=== PATIENT | male | born 1965 | race Two or more races ===

== ENCOUNTER 2017-04-12 23:40 | Inpatient (IN) | payer MEDICAID, OTHER ==
[~2017-04-12] VITALS: Ht 157.5 cm; Wt 101.6 kg
[2017-04-12 23:50] VITALS: BP 129/85
[2017-04-13] VITALS (8 sets, daily range): BP systolic 106–132; BP diastolic 61–80
[2017-04-13 01:18] LABS: BASOPHILS % (AUTO) 0.9 % (0.0-2.0); EOSINOPHILS % (AUTO) 2.2 % (0.0-3.0); LYMPHOCYTES % (AUTO) 21.2 % (20.0-45.0); MEAN CORPUSCULAR HGB CONC 34.2 G/DL (32.0-36.0); MEAN CORPUSCULAR VOLUME 94 FL (80-99); MEAN PLATELET VOLUME 8.4 FL (6.5-10.1); MONOCYTES % (AUTO) 11.1 % (1.0-10.0); NEUTROPHILS % (AUTO) 64.5 % (45.0-75.0); PLATELET COUNT 156 K/UL (150-450); RED BLOOD COUNT 4.86 M/UL (4.70-6.10); RED CELL DISTRIBUTION WIDTH 12.2 % (11.6-14.8); WHITE BLOOD COUNT 7.6 K/UL (4.8-10.8)
[2017-04-13 01:40] LABS: ALANINE AMINOTRANSFERASE 85 U/L (12-78); ALBUMIN/GLOBULIN RATIO 0.9 (1.0-2.7); ANION GAP 6 (5-15); ASPARTATE AMINO TRANSFERASE 72 U/L (15-37); CARBON DIOXIDE 26 MMOL/L (21-32); CHLORIDE 106 MMOL/L (98-107); CREATININE 0.8 MG/DL (0.55-1.30); GLOMERULAR FILTRATION RATE > 60 mL/min (>60); LIPASE 209 U/L (73-393); POTASSIUM 3.4 MMOL/L (3.5-5.1); SODIUM 138 MMOL/L (136-145); TOTAL PROTEIN 7.9 G/DL (6.4-8.2)
[2017-04-13] MEDS ORDERED: Enoxaparin 100mg Inj SUBQ SCH (03:30)
--- NOTE | 2017-04-13 05:08 | Emergency Room Report ---
History of Present Illness General Chief Complaint: Chest Pain Source: Patient Present Illness HPI Patient presents with complaints of chest pain or shortness of breath patient reports that he was at rest when the sensation came on he had some discomfort to his left arm Denies any headache or visual changes denies any vomiting or diarrhea Pain was a 5/10 heaviness midsternal Patient denies any history of smoking or drug abuse Patient is not on any medications Pain has now started to improve and resolve He complained of a dizziness sensation and a ringing in his ears at the time as well Allergies: Coded Allergies: No Known Allergies (Unverified , 04/12/17) Patient History Past Medical History: see triage record Pertinent Family History: none Reviewed Nursing Documentation: PMH: Agreed, PSxH: Agreed Review of Systems All Other Systems: negative except mentioned in HPI Physical Exam Vital Signs Date Time Temp Pulse Resp B/P (MAP) Pulse Ox O2 Delivery O2 Flow Rate FiO2 04/12/17 23:43 97.7 99 18 129/85 98 Room Air Sp02 EP Interpretation: reviewed, normal General Appearance: well appearing, no apparent distress Head: normocephalic, atraumatic Eyes: bilateral eye PERRL, bilateral eye EOMI ENT: hearing grossly normal, normal pharynx, TMs + canals normal, uvula midline Neck: full range of motion, supple, no meningismus, no bony tend Respiratory: lungs clear, normal breath sounds, no rhonchi, no respiratory distress, no retraction, no accessory muscle use Cardiovascular #1: normal peripheral pulses, regular rate, rhythm, no edema, no gallop, no JVD, no murmur Gastrointestinal: normal bowel sounds, non tender, soft, no mass, no organomegaly, non-distended, no guarding, no hernia, no pulsatile mass, no rebound Genitourinary: no CVA tenderness Musculoskeletal: normal inspection Neurologic: oriented x3, responsive, 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, motor strength/ tone normal, sensory intact Psychiatric: mood/affect normal Skin: normal color, no rash, warm/dry, palpation normal Lymphatic: normal inspection, no adenopathy Medical Decision Making Diagnostic Impression: Primary Impression: ACS (acute coronary syndrome) Additional Impression: NSTEMI (non-ST elevated myocardial infarction) ER Course Patient is a fairly complex patient with multiple differential to consideration including but not limited to cardiac cardiopulmonary and vascular emergencies Patient's blood work reveals elevated troponin Total CK and index is also elevated EKG however does not reveal any signs of ST elevation consideration for PE is made however patient is not tachycardic or hypoxic Patient was given dose of Lovenox given the troponin level at this time requires further inpatient care Labs Test 04/13/17 00:58 White Blood Count 7.6 K/UL (4.8-10.8) Red Blood Count 4.86 M/UL (4.70-6.10) Hemoglobin 15.6 G/DL (14.2-18.0) Hematocrit 45.5 % (42.0-52.0) Mean Corpuscular Volume 94 FL (80-99) Mean Corpuscular Hemoglobin 32.0 PG (27.0-31.0) Mean Corpuscular Hemoglobin Concent 34.2 G/DL (32.0-36.0) Red Cell Distribution Width 12.2 % (11.6-14.8) Platelet Count 156 K/UL (150-450) Mean Platelet Volume 8.4 FL (6.5-10.1) Neutrophils (%) (Auto) 64.5 % (45.0-75.0) Lymphocytes (%) (Auto) 21.2 % (20.0-45.0) Monocytes (%) (Auto) 11.1 % (1.0-10.0) Eosinophils (%) (Auto) 2.2 % (0.0-3.0) Basophils (%) (Auto) 0.9 % (0.0-2.0) Sodium Level 138 MMOL/L (136-145) Potassium Level 3.4 MMOL/L (3.5-5.1) Chloride Level 106 MMOL/L (98-107) Carbon Dioxide Level 26 MMOL/L (21-32) Anion Gap 6 (5-15) Blood Urea Nitrogen 11 mg/dL (7-18) Creatinine 0.8 MG/DL (0.55-1.30) Estimat Glomerular Filtration Rate > 60 mL/min (>60) Glucose Level 112 MG/DL (74-106) Calcium Level 9.0 MG/DL (8.5-10.1) Total Bilirubin 0.4 MG/DL (0.2-1.0) Aspartate Amino Transf (AST/SGOT) 72 U/L (15-37) Alanine Aminotransferase (ALT/SGPT) 85 U/L (12-78) Alkaline Phosphatase 125 U/L (46-116) Total Creatine Kinase 634 U/L (26-308) Creatine Kinase MB 16.0 NG/ML (0.0-3.6) Creatine Kinase MB Relative Index 2.5 Troponin I 0.073 ng/mL (0.000-0.056) Total Protein 7.9 G/DL (6.4-8.2) Albumin 3.7 G/DL (3.4-5.0) Globulin 4.2 g/dL Albumin/Globulin Ratio 0.9 (1.0-2.7) Lipase 209 U/L (73-393) EKG Diagnostic Results Rate: normal Rhythm: NSR ST Segments: other - Nonspecific ST and T-wave changes Rhythm Strip Diag. Results EP Interpretation: yes Rate: 88 Rhythm: NSR, no PVC's, no ectopy Chest X-Ray Diagnostic Results Chest X-Ray Diagnostic Results : Chest X-Ray Ordered: Yes # of Views/Limited/Complete: 1 View Indication: Chest Pain EP Interpretation: Yes Interpretation: no consolidation, no effusion, no pneumothorax Impression: No acute disease Electronically Signed by: Eladia Smith DO Last Vital Signs Date Time Temp Pulse Resp B/P (MAP) Pulse Ox O2 Delivery O2 Flow Rate FiO2 04/13/17 02:48 97.7 81 18 131/80 97 Room Air 81 Status: improved Disposition: ADMITTED INPATIENT Condition: Serious Referrals: [facility],REFERRING (PCP) ELADIA SMITH D.O. Apr 13, 2017 05:08
[2017-04-13] MEDS ORDERED: no home meds (06:11)
[2017-04-13] MEDS ORDERED: Nitroglycerin Subl 0.4mg tab SL PRN (08:00)
[2017-04-13] MEDS: Aspirin Baby 81mg ORAL SCH (08:55)
[2017-04-13 10:03] LABS: CHOLESTEROL 135 MG/DL (< 200); CHOLESTEROL/HDL RATIO 5.9 (3.3-4.4)
[2017-04-13] MEDS: Enoxaparin 100mg Inj SUBQ SCH ×2 (12:20→21:25)
--- NOTE | 2017-04-13 12:21 | Diagnostic Imaging Report ---
Indication: Dyspnea Comparison: None A single view chest radiograph was obtained. Findings: Cardiomediastinal appearance is within normal limits for age. Pulmonary vascularity is appropriate. The diaphragmatic contour is smooth and costophrenic angles are sharp. No pleural effusions are identified. The bones are unremarkable. Impression: No acute findings
[2017-04-13] MEDS ORDERED: Heparin 5000 units/ml inj SUBQ SCH (14:00)
--- NOTE | 2017-04-13 14:43 | Consultation ---
History of Present Illness General Date patient seen: Apr 13, 2017 Chief Complaint: Chest Pain Referring physician: dr roe Reason for Consultation: chest pain Present Illness HPI 51 year old male with hx of HTN, morbid obesity presented with complaints of chest pain or shortness of breath patient reports that he was at rest when the sensation came on he had some discomfort to his left arm. Pain has started to improve in ER. He is admitted to telemetry for ACS. Allergies: Coded Allergies: No Known Allergies (Unverified , 04/12/17) Medication History Miscellaneous Medications [no home meds], (Reported) Patient History Healthcare decision maker Resuscitation status Full Code Advanced Directive on File Review of Systems Constitutional: Reports: no symptoms Eye: Reports: no symptoms ENT: Reports: no symptoms Respiratory: Reports: no symptoms Physical Exam General Appearance: WD/WN Lines, tubes and drains: peripheral HEENT: normocephalic, anicteric Neck: non-tender, supple Respiratory/Chest: chest wall non-tender, lungs clear Breasts: no masses Cardiovascular/Chest: normal peripheral pulses, no gallop/murmur Abdomen: normal bowel sounds, non tender Last 24 Hour Vital Signs Date Time Temp Pulse Resp B/P (MAP) Pulse Ox O2 Delivery O2 Flow Rate FiO2 04/13/17 11:32 97.3 68 20 106/61 100 Room Air 04/13/17 08:40 96.3 84 20 120/79 100 Room Air 5.0 04/13/17 08:00 75 04/13/17 05:40 97.5 81 14 130/80 98 Room Air 04/13/17 05:40 99 04/13/17 05:25 97.8 79 19 130/73 97 Room Air 79 04/13/17 05:13 97.8 79 19 130/73 97 Room Air 79 04/13/17 02:48 97.7 81 18 131/80 97 Room Air 81 04/13/17 01:30 98.0 87 15 132/77 98 Room Air 87 04/12/17 23:50 97.7 99 18 129/85 98 Room Air 04/12/17 23:50 99 18 Room Air 04/12/17 23:43 97.7 99 18 129/85 98 Room Air Intake and Output 04/13/17 04/14/17 19:00 07:00 Intake Total 250 ml Balance 250 ml Intake Oral 250 ml # Voids 3 Laboratory Tests Test 04/13/17 00:58 04/13/17 08:20 04/13/17 13:00 White Blood Count 7.6 K/UL (4.8-10.8) Red Blood Count 4.86 M/UL (4.70-6.10) Hemoglobin 15.6 G/DL (14.2-18.0) Hematocrit 45.5 % (42.0-52.0) Mean Corpuscular Volume 94 FL (80-99) Mean Corpuscular Hemoglobin 32.0 PG (27.0-31.0) H Mean Corpuscular Hemoglobin Concent 34.2 G/DL (32.0-36.0) Red Cell Distribution Width 12.2 % (11.6-14.8) Platelet Count 156 K/UL (150-450) Mean Platelet Volume 8.4 FL (6.5-10.1) Neutrophils (%) (Auto) 64.5 % (45.0-75.0) Lymphocytes (%) (Auto) 21.2 % (20.0-45.0) Monocytes (%) (Auto) 11.1 % (1.0-10.0) H Eosinophils (%) (Auto) 2.2 % (0.0-3.0) Basophils (%) (Auto) 0.9 % (0.0-2.0) Sodium Level 138 MMOL/L (136-145) Potassium Level 3.4 MMOL/L (3.5-5.1) L Chloride Level 106 MMOL/L (98-107) Carbon Dioxide Level 26 MMOL/L (21-32) Anion Gap 6 (5-15) Blood Urea Nitrogen 11 mg/dL (7-18) Creatinine 0.8 MG/DL (0.55-1.30) Estimat Glomerular Filtration Rate > 60 mL/min (>60) Glucose Level 112 MG/DL (74-106) H Calcium Level 9.0 MG/DL (8.5-10.1) Total Bilirubin 0.4 MG/DL (0.2-1.0) Aspartate Amino Transf (AST/SGOT) 72 U/L (15-37) H Alanine Aminotransferase (ALT/SGPT) 85 U/L (12-78) H Alkaline Phosphatase 125 U/L (46-116) H Total Creatine Kinase 634 U/L (26-308) H Creatine Kinase MB 16.0 NG/ML (0.0-3.6) H Creatine Kinase MB Relative Index 2.5 Troponin I 0.073 ng/mL (0.000-0.056) 0.137 ng/mL (0.000-0.056) Total Protein 7.9 G/DL (6.4-8.2) Albumin 3.7 G/DL (3.4-5.0) Globulin 4.2 g/dL Albumin/Globulin Ratio 0.9 (1.0-2.7) L Lipase 209 U/L (73-393) Triglycerides Level 150 MG/DL (0-200) Cholesterol Level 135 MG/DL (< 200) LDL Cholesterol 89 mg/dL (<100) HDL Cholesterol 23 MG/DL (40-60) L Cholesterol/HDL Ratio 5.9 (3.3-4.4) H Urine Opiates Screen Pending Urine Barbiturates Screen Pending Phencyclidine (PCP) Screen Pending Urine Amphetamines Screen Pending Urine Benzodiazepines Screen Pending Urine Cocaine Screen Pending Urine Marijuana (THC) Screen Pending Height (Feet): 5 Height (Inches): 2.00 Weight (Pounds): 224 Medications Current Medications Medications (Trade) Dose Ordered Sig/Hudson Route PRN Reason Start Time Stop Time Status Last Admin Dose Admin Acetaminophen (Tylenol) 650 mg Q6H PRN ORAL Mild Pain/Temp > 100.5 04/13/17 08:00 05/13/17 07:59 Aspirin (ASA) 81 mg DAILY ORAL 04/13/17 09:00 05/13/17 08:59 04/13/17 08:55 Dextrose (Dextrose 50%) STAT PRN IV Hypoglycemia 04/13/17 08:00 05/13/17 07:59 Enoxaparin Sodium (Lovenox) 100 mg EVERY 12 HOURS SUBQ 04/13/17 12:00 05/13/17 11:59 04/13/17 12:20 Nitroglycerin (Ntg) 0.4 mg Q5M PRN SL Prn Chest Pain 04/13/17 08:00 05/13/17 07:59 Pantoprazole (Protonix) 40 mg DAILY ORAL 04/13/17 09:00 05/13/17 08:59 04/13/17 08:55 Assessment/Plan Problem List: (1) Morbid obesity ICD Codes: E66.01 - Morbid (severe) obesity due to excess calories SNOMED: 910839166, 08681763972748 (2) NSTEMI (non-ST elevated myocardial infarction) ICD Codes: I21.4 - Non-ST elevation (NSTEMI) myocardial infarction SNOMED: 407685804 (3) ACS (acute coronary syndrome) ICD Codes: I24.9 - Acute ischemic heart disease, unspecified SNOMED: 680019471 Assessment/Plan serial ekg, troponin cardiology to see echo repeat echo EDDIE FRANCO Apr 13, 2017 14:43
--- NOTE | 2017-04-13 18:29 | Cardiology Progress Note ---
Assessment/Plan Assessment/Plan The patient is seen and examined, full consult note will be dictated. Objective Last 24 Hour Vital Signs Date Time Temp Pulse Resp B/P (MAP) Pulse Ox O2 Delivery O2 Flow Rate FiO2 04/13/17 16:00 75 04/13/17 15:39 97.0 68 20 111/71 100 Room Air 04/13/17 12:00 73 04/13/17 11:32 97.3 68 20 106/61 100 Room Air 04/13/17 08:40 96.3 84 20 120/79 100 Room Air 5.0 04/13/17 08:00 75 04/13/17 05:40 97.5 81 14 130/80 98 Room Air 04/13/17 05:40 99 04/13/17 05:25 97.8 79 19 130/73 97 Room Air 79 04/13/17 05:13 97.8 79 19 130/73 97 Room Air 79 04/13/17 02:48 97.7 81 18 131/80 97 Room Air 81 04/13/17 01:30 98.0 87 15 132/77 98 Room Air 87 04/12/17 23:50 97.7 99 18 129/85 98 Room Air 04/12/17 23:50 99 18 Room Air 04/12/17 23:43 97.7 99 18 129/85 98 Room Air Intake and Output 04/13/17 04/14/17 19:00 07:00 Intake Total 490 ml Balance 490 ml Intake Oral 490 ml # Voids 4 Laboratory Tests Test 04/13/17 00:58 04/13/17 08:20 04/13/17 13:00 White Blood Count 7.6 K/UL (4.8-10.8) Red Blood Count 4.86 M/UL (4.70-6.10) Hemoglobin 15.6 G/DL (14.2-18.0) Hematocrit 45.5 % (42.0-52.0) Mean Corpuscular Volume 94 FL (80-99) Mean Corpuscular Hemoglobin 32.0 PG (27.0-31.0) H Mean Corpuscular Hemoglobin Concent 34.2 G/DL (32.0-36.0) Red Cell Distribution Width 12.2 % (11.6-14.8) Platelet Count 156 K/UL (150-450) Mean Platelet Volume 8.4 FL (6.5-10.1) Neutrophils (%) (Auto) 64.5 % (45.0-75.0) Lymphocytes (%) (Auto) 21.2 % (20.0-45.0) Monocytes (%) (Auto) 11.1 % (1.0-10.0) H Eosinophils (%) (Auto) 2.2 % (0.0-3.0) Basophils (%) (Auto) 0.9 % (0.0-2.0) Sodium Level 138 MMOL/L (136-145) Potassium Level 3.4 MMOL/L (3.5-5.1) L Chloride Level 106 MMOL/L (98-107) Carbon Dioxide Level 26 MMOL/L (21-32) Anion Gap 6 (5-15) Blood Urea Nitrogen 11 mg/dL (7-18) Creatinine 0.8 MG/DL (0.55-1.30) Estimat Glomerular Filtration Rate > 60 mL/min (>60) Glucose Level 112 MG/DL (74-106) H Calcium Level 9.0 MG/DL (8.5-10.1) Total Bilirubin 0.4 MG/DL (0.2-1.0) Aspartate Amino Transf (AST/SGOT) 72 U/L (15-37) H Alanine Aminotransferase (ALT/SGPT) 85 U/L (12-78) H Alkaline Phosphatase 125 U/L (46-116) H Total Creatine Kinase 634 U/L (26-308) H Creatine Kinase MB 16.0 NG/ML (0.0-3.6) H Creatine Kinase MB Relative Index 2.5 Troponin I 0.073 ng/mL (0.000-0.056) 0.137 ng/mL (0.000-0.056) Total Protein 7.9 G/DL (6.4-8.2) Albumin 3.7 G/DL (3.4-5.0) Globulin 4.2 g/dL Albumin/Globulin Ratio 0.9 (1.0-2.7) L Lipase 209 U/L (73-393) Triglycerides Level 150 MG/DL (0-200) Cholesterol Level 135 MG/DL (< 200) LDL Cholesterol 89 mg/dL (<100) HDL Cholesterol 23 MG/DL (40-60) L Cholesterol/HDL Ratio 5.9 (3.3-4.4) H Urine Opiates Screen Negative (NEGATIVE) Urine Barbiturates Screen Negative (NEGATIVE) Phencyclidine (PCP) Screen Negative (NEGATIVE) Urine Amphetamines Screen Negative (NEGATIVE) Urine Benzodiazepines Screen Negative (NEGATIVE) Urine Cocaine Screen Negative (NEGATIVE) Urine Marijuana (THC) Screen Negative (NEGATIVE) JOYA SAM Apr 13, 2017 18:29
--- NOTE | 2017-04-13 19:28 | History & Physical ---
History and Physical History & Physicial Tristian Naidu MD Apr 13, 2017 19:28
[2017-04-13] MEDS: Metoprolol 25mg tab ORAL SCH (21:00)
[2017-04-13] MEDS: Atorvastatin 80mg tab ORAL SCH (22:21)
[2017-04-14] VITALS: BP 112/59
[2017-04-14 04:00] VITALS: BP 110/70
--- NOTE | 2017-04-14 05:17 | History and Physical Report ---
DATE OF ADMISSION: 04/13/2017 CHIEF COMPLAINT: Chest pain. HISTORY OF PRESENT ILLNESS: This is a 51-year-old gentleman with a past medical history significant for hypertension and morbid obesity, who presented to the hospital complaining of chest pain associated with shortness of breath. Shortly after initial evaluation, the patient was admitted to the hospital with chest pain, possible acute coronary syndrome. Prior to that, the patient's first troponin in the ER was noted to be 0.073 positive and repeat one is 0.137 and subsequently the patient was admitted to telemetry with possible [id number] MO. PAST MEDICAL HISTORY AND PAST SURGICAL HISTORY: As above, history of hypertension and morbid obesity. MEDICATIONS: At home is significant for none, the patient does not take any medications. ALLERGIES: No known drug allergies. FAMILY HISTORY: Noncontributory. REVIEW OF SYSTEMS: Unremarkable. Denies any chest pain at this time. Denies any hemoptysis or hematochezia. Denies any bright red blood per rectum. Denies any pedal edema. PHYSICAL EXAMINATION: VITAL SIGNS: On admission, temperature 97.7, pulse of 99, respiration 18, and blood pressure 129/85. GENERAL: The patient is awake and responsive, in no acute distress. HEAD AND NECK: Pupils are reactive to light. Extraocular movements intact. NECK: Supple. No JVD. LUNGS: Good air entry. No wheezes or rales. HEART: S1 and S2. Distant heart sounds. No murmurs or gallops. ABDOMEN: Soft, nondistended, and nontender. Morbidly obese. EXTREMITIES: No cyanosis, clubbing, or edema. NEUROLOGIC: Cranial nerves II through XII grossly intact. Motor is 5/5 in all extremities. Gait is intact. GENITOURINARY: Examination essentially unremarkable. RECTAL: Examination essentially unremarkable. LABORATORY AND DIAGNOSTIC DATA: Laboratory on admission is significant for sodium 138, potassium 3.4, chloride 106, bicarbonate 26, BUN 11, creatinine 0.8, glucose is 112, alkaline phosphatase is 125. Total CK of 634. First troponin is 0.073 and second troponin is 0.137. Cholesterol is 135. Urine drug screen is negative. WBC of 7.6, hemoglobin 15, hematocrit 45, and platelet is 156. Chest x-ray: No acute process. EKG: Normal sinus rhythm, ventricular rate 86, no ST elevation or T-wave inversion, Q-wave was noted in the inferior leads II, III, and aVF. ASSESSMENT: 1. Elevated troponin, possible [id number] MO. 2. Hypertension. 3. Morbid obesity. PLAN: Admit the patient to telemetry. We will follow up with Dr. Ramírez from Pulmonary Critical Care and Dr. Metzger from Cardiology. We will monitor laboratory and the patient already started on Lovenox injection, atorvastatin 80 mg, metoprolol 25 mg b.i.d., and aspirin. Code status is Full Code. DVT prophylaxis, Lovenox, and consider to transfer the patient for cardiac catheterization. Tristian Naidu M.D. DR: ANTONINO JOB#: [id number] CC:
[2017-04-14 08:22] VITALS: BP 114/70
[2017-04-14] MEDS: Aspirin Baby 81mg ORAL SCH (08:57)
[2017-04-14] MEDS: Enoxaparin 100mg Inj SUBQ SCH ×2 (08:59→20:53)
[2017-04-14] MEDS: Metoprolol 25mg tab ORAL SCH ×2 (09:00→20:51)
--- NOTE | 2017-04-14 11:13 | Pulmonology Progress Note ---
Assessment/Plan Assessment/Plan ASSESSMENT chest pain elevated troponin possible NSTEMI morbid obesity elevated LFT PLAN OF CARE tele serial troponin ECG no acute ischemic changes started on Lovenox ECHO with pEF 55% and RVSP of 11 on ASA, BB, statin lipid panel stable cardio follows non smoker tox screen negative GI prophayxlsi pain management trend LFT abdominal US case discussed and evaluated by supervising physician Subjective Allergies: Coded Allergies: No Known Allergies (Unverified , 04/12/17) Subjective denies chest pain, SOB, on Lovenox pulse oximetry stable SR on tele Objective Last 24 Hour Vital Signs Date Time Temp Pulse Resp B/P (MAP) Pulse Ox O2 Delivery O2 Flow Rate FiO2 04/14/17 09:00 71 128/85 04/14/17 08:22 97.9 72 20 114/70 92 Room Air 04/14/17 08:00 79 04/14/17 04:00 66 04/14/17 04:00 97.3 66 20 110/70 100 Room Air 5.0 04/14/17 00:00 97.5 65 20 112/59 100 Room Air 5.0 04/13/17 21:00 81 04/13/17 21:00 65 04/13/17 20:00 98.1 20 116/67 100 Room Air 5.0 04/13/17 16:00 75 04/13/17 15:39 97.0 68 20 111/71 100 Room Air 04/13/17 12:00 73 04/13/17 11:32 97.3 68 20 106/61 100 Room Air Intake and Output 04/14/17 04/15/17 19:00 07:00 Intake Total 240 ml Balance 240 ml Intake Oral 240 ml # Voids 2 General Appearance: no acute distress HEENT: normocephalic, atraumatic, PERRL Respiratory/Chest: chest wall non-tender, lungs clear, normal breath sounds, no respiratory distress, chest wall tender Cardiovascular: normal peripheral pulses, normal rate, regular rhythm, no JVD Abdomen: normal bowel sounds, soft, non tender - obese Extremities: no edema Neurologic/Psychiatric: no motor/sensory deficits, alert, oriented x 3, responsive Musculoskeletal: normal muscle bulk Laboratory Tests 04/13/17 13:00: Urine Opiates Screen Negative, Urine Barbiturates Screen Negative, Phencyclidine (PCP) Screen Negative, Urine Amphetamines Screen Negative, Urine Benzodiazepines Screen Negative, Urine Cocaine Screen Negative, Urine Marijuana (THC) Screen Negative Current Medications Medications (Trade) Dose Ordered Sig/Hudson Route PRN Reason Start Time Stop Time Status Last Admin Dose Admin Acetaminophen (Tylenol) 650 mg Q6H PRN ORAL Mild Pain/Temp > 100.5 04/13/17 08:00 05/13/17 07:59 Aspirin (ASA) 81 mg DAILY ORAL 04/13/17 09:00 05/13/17 08:59 04/14/17 08:57 Atorvastatin Calcium (Lipitor) 80 mg BEDTIME ORAL 04/13/17 21:00 05/13/17 20:59 04/13/17 22:21 Dextrose (Dextrose 50%) STAT PRN IV Hypoglycemia 04/13/17 08:00 05/13/17 07:59 Enoxaparin Sodium (Lovenox) 100 mg EVERY 12 HOURS SUBQ 04/13/17 12:00 05/13/17 11:59 04/14/17 08:59 Metoprolol Tartrate (Lopressor) 25 mg Q12HR ORAL 04/13/17 21:00 05/13/17 20:59 04/14/17 09:00 Nitroglycerin (Ntg) 0.4 mg Q5M PRN SL Prn Chest Pain 04/13/17 08:00 05/13/17 07:59 Pantoprazole (Protonix) 40 mg DAILY ORAL 04/13/17 09:00 05/13/17 08:59 04/14/17 08:57 Real ThrasherJodie rutledge NP Apr 14, 2017 11:13
[2017-04-14 11:55] VITALS: BP 107/72
--- NOTE | 2017-04-14 14:39 | Internal Med Progress Note ---
Subjective Date of Service: Apr 14, 2017 Physician Name Harpreet Park Attending Physician Tristian Naidu MD Current Medications Medications (Trade) Dose Ordered Sig/Hudson Route PRN Reason Start Time Stop Time Status Last Admin Dose Admin Acetaminophen (Tylenol) 650 mg Q6H PRN ORAL Mild Pain/Temp > 100.5 04/13/17 08:00 05/13/17 07:59 Aspirin (ASA) 81 mg DAILY ORAL 04/13/17 09:00 05/13/17 08:59 04/14/17 08:57 Atorvastatin Calcium (Lipitor) 80 mg BEDTIME ORAL 04/13/17 21:00 05/13/17 20:59 04/13/17 22:21 Dextrose (Dextrose 50%) STAT PRN IV Hypoglycemia 04/13/17 08:00 05/13/17 07:59 Enoxaparin Sodium (Lovenox) 100 mg EVERY 12 HOURS SUBQ 04/13/17 12:00 05/13/17 11:59 04/14/17 08:59 Metoprolol Tartrate (Lopressor) 25 mg Q12HR ORAL 04/13/17 21:00 05/13/17 20:59 04/14/17 09:00 Nitroglycerin (Ntg) 0.4 mg Q5M PRN SL Prn Chest Pain 04/13/17 08:00 05/13/17 07:59 Pantoprazole (Protonix) 40 mg DAILY ORAL 04/13/17 09:00 05/13/17 08:59 04/14/17 08:57 Allergies: Coded Allergies: No Known Allergies (Unverified , 04/12/17) ROS Limited/Unobtainable: No Constitutional: Reports: no symptoms HEENT: Reports: no symptoms Cardiovascular: Reports: chest pain Respiratory: Reports: no symptoms Gastrointestinal/Abdominal: Reports: no symptoms Genitourinary: Reports: no symptoms Neurologic/Psychiatric: Reports: no symptoms Subjective 51 YO M admitted with chest pain. Cover for Lurdes Naidu. Objective Last Vital Signs Date Time Temp Pulse Resp B/P (MAP) Pulse Ox O2 Delivery O2 Flow Rate FiO2 04/14/17 12:00 66 04/14/17 11:55 98.1 20 107/72 96 Room Air 04/14/17 04:00 5.0 General Appearance: WD/WN, no apparent distress, obese EENT: PERRL/EOMI, normal ENT inspection Neck: non-tender, normal alignment, supple, normal inspection Cardiovascular: normal peripheral pulses, normal rate, regular rhythm, no gallop/murmur, no JVD Respiratory/Chest: chest wall non-tender, lungs clear, normal breath sounds, no respiratory distress, no accessory muscle use Abdomen: normal bowel sounds, non tender, soft, no organomegaly, no mass Extremities: normal range of motion Neurologic: sheetmetal worker II-XII grossly normal, no motor/sensory deficits Skin: normal pigmentation, warm/dry Intake and Output 04/14/17 04/15/17 19:00 07:00 Intake Total 490 ml Balance 490 ml Intake Oral 490 ml # Voids 3 # Bowel Movements 2 Assessment/Plan Problem List: (1) Chest pain Assessment & Plan: See cardiology note. (2) HTN (hypertension) Assessment & Plan: Cont metoprolol (3) NSTEMI (non-ST elevated myocardial infarction) Assessment & Plan: See cardiology note. (4) Morbid obesity Status: not improved HARPREET PARK Apr 14, 2017 14:39
[2017-04-14 15:33] VITALS: BP 105/55
[2017-04-14 20:00] VITALS: BP 130/76
[2017-04-14] MEDS: Atorvastatin 80mg tab ORAL SCH (20:51)
[2017-04-15] VITALS: BP 105/65
[2017-04-15 04:00] VITALS: BP 120/69
[2017-04-15 08:00] VITALS: BP 113/72
[2017-04-15] MEDS: Aspirin Baby 81mg ORAL SCH (09:00)
[2017-04-15] MEDS: Enoxaparin 100mg Inj SUBQ SCH (09:00)
[2017-04-15] MEDS: Metoprolol 25mg tab ORAL SCH (10:09)
[2017-04-15 10:52] LABS: BASOPHILS % (AUTO) 0.7 % (0.0-2.0); LYMPHOCYTES % (AUTO) 29.3 % (20.0-45.0); MEAN CORPUSCULAR HEMOGLOBIN 32.2 PG (27.0-31.0); MEAN CORPUSCULAR HGB CONC 34.1 G/DL (32.0-36.0); MEAN CORPUSCULAR VOLUME 95 FL (80-99); PLATELET COUNT 160 K/UL (150-450); RED BLOOD COUNT 5.02 M/UL (4.70-6.10); RED CELL DISTRIBUTION WIDTH 12.3 % (11.6-14.8); WHITE BLOOD COUNT 6.9 K/UL (4.8-10.8)
[2017-04-15 11:13] LABS: ALANINE AMINOTRANSFERASE 64 U/L (12-78); ALBUMIN/GLOBULIN RATIO 0.9 (1.0-2.7); ANION GAP 7 (5-15); ASPARTATE AMINO TRANSFERASE 44 U/L (15-37); CALCIUM 9.2 MG/DL (8.5-10.1); CARBON DIOXIDE 28 MMOL/L (21-32); CHLORIDE 105 MMOL/L (98-107); CREATININE 0.8 MG/DL (0.55-1.30); GLOMERULAR FILTRATION RATE > 60 mL/min (>60); POTASSIUM 4.3 MMOL/L (3.5-5.1); SODIUM 140 MMOL/L (136-145); TOTAL PROTEIN 7.7 G/DL (6.4-8.2)
[2017-04-15 12:00] VITALS: BP 119/73
--- NOTE | 2017-04-15 13:33 | Internal Med Progress Note ---
Subjective Date of Service: Apr 15, 2017 Physician Name Harpreet Park Attending Physician Tristian Naidu MD Current Medications Medications (Trade) Dose Ordered Sig/Hudson Route PRN Reason Start Time Stop Time Status Last Admin Dose Admin Acetaminophen (Tylenol) 650 mg Q6H PRN ORAL Mild Pain/Temp > 100.5 04/13/17 08:00 05/13/17 07:59 Aspirin (ASA) 81 mg DAILY ORAL 04/13/17 09:00 05/13/17 08:59 04/15/17 09:00 Atorvastatin Calcium (Lipitor) 80 mg BEDTIME ORAL 04/13/17 21:00 05/13/17 20:59 04/14/17 20:51 Dextrose (Dextrose 50%) STAT PRN IV Hypoglycemia 04/13/17 08:00 05/13/17 07:59 Enoxaparin Sodium (Lovenox) 100 mg EVERY 12 HOURS SUBQ 04/13/17 12:00 05/13/17 11:59 04/14/17 20:53 Metoprolol Tartrate (Lopressor) 25 mg Q12HR ORAL 04/13/17 21:00 05/13/17 20:59 04/15/17 10:09 Nitroglycerin (Ntg) 0.4 mg Q5M PRN SL Prn Chest Pain 04/13/17 08:00 05/13/17 07:59 Pantoprazole (Protonix) 40 mg DAILY ORAL 04/13/17 09:00 05/13/17 08:59 04/15/17 10:09 Allergies: Coded Allergies: No Known Allergies (Unverified , 04/12/17) ROS Limited/Unobtainable: No Constitutional: Reports: no symptoms HEENT: Reports: no symptoms Cardiovascular: Reports: chest pain Respiratory: Reports: no symptoms Gastrointestinal/Abdominal: Reports: no symptoms Genitourinary: Reports: no symptoms Neurologic/Psychiatric: Reports: no symptoms Subjective 51 YO M admitted with chest pain. Cover for Lurdes Naidu. Objective Last Vital Signs Date Time Temp Pulse Resp B/P (MAP) Pulse Ox O2 Delivery O2 Flow Rate FiO2 04/15/17 12:00 97.7 59 18 119/73 98 Room Air 04/15/17 04:00 5.0 Laboratory Tests Test 04/15/17 09:40 White Blood Count 6.9 K/UL (4.8-10.8) Red Blood Count 5.02 M/UL (4.70-6.10) Hemoglobin 16.2 G/DL (14.2-18.0) Hematocrit 47.4 % (42.0-52.0) Mean Corpuscular Volume 95 FL (80-99) Mean Corpuscular Hemoglobin 32.2 PG (27.0-31.0) H Mean Corpuscular Hemoglobin Concent 34.1 G/DL (32.0-36.0) Red Cell Distribution Width 12.3 % (11.6-14.8) Platelet Count 160 K/UL (150-450) Mean Platelet Volume 9.0 FL (6.5-10.1) Neutrophils (%) (Auto) 58.0 % (45.0-75.0) Lymphocytes (%) (Auto) 29.3 % (20.0-45.0) Monocytes (%) (Auto) 9.0 % (1.0-10.0) Eosinophils (%) (Auto) 3.0 % (0.0-3.0) Basophils (%) (Auto) 0.7 % (0.0-2.0) Sodium Level 140 MMOL/L (136-145) Potassium Level 4.3 MMOL/L (3.5-5.1) Chloride Level 105 MMOL/L (98-107) Carbon Dioxide Level 28 MMOL/L (21-32) Anion Gap 7 (5-15) Blood Urea Nitrogen 10 mg/dL (7-18) Creatinine 0.8 MG/DL (0.55-1.30) Estimat Glomerular Filtration Rate > 60 mL/min (>60) Glucose Level 108 MG/DL (74-106) H Calcium Level 9.2 MG/DL (8.5-10.1) Total Bilirubin 0.8 MG/DL (0.2-1.0) Aspartate Amino Transf (AST/SGOT) 44 U/L (15-37) H Alanine Aminotransferase (ALT/SGPT) 64 U/L (12-78) Alkaline Phosphatase 74 U/L (46-116) Troponin I 0.032 ng/mL (0.000-0.056) Total Protein 7.7 G/DL (6.4-8.2) Albumin 3.7 G/DL (3.4-5.0) Globulin 4.0 g/dL Albumin/Globulin Ratio 0.9 (1.0-2.7) L Intake and Output 04/15/17 04/16/17 19:00 07:00 # Voids 2 Objective General Appearance: WD/WN, no apparent distress, obese EENT: PERRL/EOMI, normal ENT inspection Neck: non-tender, normal alignment, supple, normal inspection Cardiovascular: normal peripheral pulses, normal rate, regular rhythm, no gallop/murmur, no JVD Respiratory/Chest: chest wall non-tender, lungs clear, normal breath sounds, no respiratory distress, no accessory muscle use Abdomen: normal bowel sounds, non tender, soft, no organomegaly, no mass Extremities: normal range of motion Neurologic: assessment director II-XII grossly normal, no motor/sensory deficits Skin: normal pigmentation, warm/dry Assessment/Plan Problem List: (1) Chest pain Assessment & Plan: See cardiology note. (2) HTN (hypertension) Assessment & Plan: Cont metoprolol (3) NSTEMI (non-ST elevated myocardial infarction) Assessment & Plan: See cardiology note. (4) Morbid obesity Status: stable HARPREET PARK Apr 15, 2017 13:33
--- NOTE | 2017-04-15 13:54 | Pulmonology Progress Note ---
Assessment/Plan Assessment/Plan ASSESSMENT chest pain elevated troponin possible NSTEMI morbid obesity elevated LFT PLAN OF CARE tele serial troponin x2 with elevation on Lovenox last troponin this am negative ECG no acute ischemic changes ECHO with pEF 55% and RVSP of 11 on ASA, BB, statin cardio follows lipid panel stable non smoker tox screen negative GI prophayxlsi pain management LFT - trending down abdominal US pending case discussed and evaluated by supervising physician Subjective Allergies: Coded Allergies: No Known Allergies (Unverified , 04/12/17) Subjective denies chest pain, SOB, on Lovenox pulse oximetry stable SR on tele Objective Last 24 Hour Vital Signs Date Time Temp Pulse Resp B/P (MAP) Pulse Ox O2 Delivery O2 Flow Rate FiO2 04/15/17 12:00 97.7 59 18 119/73 98 Room Air 04/15/17 10:09 66 120/69 04/15/17 08:00 96.6 62 18 113/72 95 Room Air 04/15/17 08:00 61 04/15/17 04:00 97.0 72 20 120/69 96 Room Air 5.0 04/15/17 04:00 66 04/15/17 00:00 82 04/15/17 00:00 97.0 64 20 105/65 96 Room Air 5.0 04/14/17 20:51 79 130/76 04/14/17 20:00 77 04/14/17 20:00 97.2 77 20 130/76 96 Room Air 5.0 04/14/17 16:00 87 04/14/17 15:33 96.8 68 20 105/55 100 Room Air Intake and Output 04/15/17 04/16/17 19:00 07:00 # Voids 2 Objective General Appearance: no acute distress HEENT: normocephalic, atraumatic, PERRL Respiratory/Chest: chest wall non-tender, lungs clear, normal breath sounds, no respiratory distress, chest wall tender Cardiovascular: normal peripheral pulses, normal rate, regular rhythm, no JVD Abdomen: normal bowel sounds, soft, non tender - obese Extremities: no edema Neurologic/Psychiatric: no motor/sensory deficits, alert, oriented x 3, responsive Musculoskeletal: normal muscle bulk Laboratory Tests 04/15/17 09:40: White Blood Count 6.9, Red Blood Count 5.02, Hemoglobin 16.2, Hematocrit 47.4, Mean Corpuscular Volume 95, Mean Corpuscular Hemoglobin 32.2H, Mean Corpuscular Hemoglobin Concent 34.1, Red Cell Distribution Width 12.3, Platelet Count 160, Mean Platelet Volume 9.0, Neutrophils (%) (Auto) 58.0, Lymphocytes (%) (Auto) 29.3, Monocytes (%) (Auto) 9.0, Eosinophils (%) (Auto) 3.0, Basophils (%) (Auto ) 0.7, Sodium Level 140, Potassium Level 4.3, Chloride Level 105, Carbon Dioxide Level 28, Anion Gap 7, Blood Urea Nitrogen 10, Creatinine 0.8, Estimat Glomerular Filtration Rate > 60, Glucose Level 108H, Calcium Level 9.2, Total Bilirubin 0.8, Aspartate Amino Transf (AST/SGOT) 44H, Alanine Aminotransferase ( ALT/SGPT) 64, Alkaline Phosphatase 74, Troponin I 0.032, Total Protein 7.7, Albumin 3.7, Globulin 4.0, Albumin/Globulin Ratio 0.9L Current Medications Medications (Trade) Dose Ordered Sig/[place] Route PRN Reason Start Time Stop Time Status Last Admin Dose Admin Acetaminophen (Tylenol) 650 mg Q6H PRN ORAL Mild Pain/Temp > 100.5 04/13/17 08:00 05/13/17 07:59 Aspirin (ASA) 81 mg DAILY ORAL 04/13/17 09:00 05/13/17 08:59 04/15/17 09:00 Atorvastatin Calcium (Lipitor) 80 mg BEDTIME ORAL 04/13/17 21:00 05/13/17 20:59 04/14/17 20:51 Dextrose (Dextrose 50%) STAT PRN IV Hypoglycemia 04/13/17 08:00 05/13/17 07:59 Enoxaparin Sodium (Lovenox) 100 mg EVERY 12 HOURS SUBQ 04/13/17 12:00 05/13/17 11:59 04/14/17 20:53 Metoprolol Tartrate (Lopressor) 25 mg Q12HR ORAL 04/13/17 21:00 05/13/17 20:59 04/15/17 10:09 Nitroglycerin (Ntg) 0.4 mg Q5M PRN SL Prn Chest Pain 04/13/17 08:00 05/13/17 07:59 Pantoprazole (Protonix) 40 mg DAILY ORAL 04/13/17 09:00 05/13/17 08:59 04/15/17 10:09 Real ([facility])Jodie NP Apr 15, 2017 13:54
--- NOTE | 2017-04-16 09:57 | Cardiology Report ---
APPROVED REPORT EXAM: Two-dimensional and M-mode echocardiogram with Doppler and color Doppler. INDICATION Chest Pain M-Mode DIMENSIONS IVSd1.6 (0.7-1.1cm)Left Atrium (MM)3.3 (1.6-4.0cm) LVDd4.6 (3.5-5.6cm)Aortic Root2.7 (2.0-3.7cm) PWd1.4 (0.7-1.1cm)Aortic Cusp Exc.2.1 (1.5-2.0cm) LVDs2.7 (2.5-4.0cm) PWs1.7 cm Normal left ventricular chamber size, systolic function and wall motion. Left ventricular ejection fraction estimated to be 55 %. No evidence of left ventricular hypertrophy. Anterior Echo-free space, may be due to pericardial fat or effusion. Mild bi-atrial enlargement. Right ventricular chamber size within normal limits. Normal appearing aortic and mitral valve. Mild mitral annulus and aortic root calcification. Normal pulmonic valve structure. Normal tricuspid valve structure. IVC dilated at 1.9 with physiological collapse. A color flow and spectral Doppler study was performed and revealed: No aortic insufficiency. No mitral regurgitation. Mitral diastolic velocities suggest reduced left ventricular relaxation c/w diastolic dysfunction (Grade I). No tricuspid regurgitation. Tricuspid systolic velocities suggests peak right ventricular systolic pressure of 11 mmHg. No pulmonic regurgitation present.
--- NOTE | 2017-04-16 17:59 | Discharge Summary ---
Discharge Summary Hospital Course Date of Admission Apr 13, 2017 at 02:25 Date of Discharge Apr 15, 2017 at 16:00 Admitting Diagnosis Acute coronary syndrome HPI Antonio Herr is a 51 year old male who was admitted on Apr 13, 2017 at 02:25 for Acute Coronary Syndrome Hospital Course dc summary #[id number] Discharge Discharge Disposition Patient signed AMA Discharge Diagnoses: Real (Love),Jodie LANCE Apr 16, 2017 17:59
--- NOTE | 2017-04-16 23:45 | Discharge Summary 2 SIG ---
DATE OF ADMISSION: 04/13/2017 DATE OF SIGNING AGAINST MEDICAL ADVICE: 04/15/2017 REASON FOR ADMISSION: 51-year-old male with past medical history of hypertension and morbid obesity, presented to hospital complaining of chest pain associated with shortness of breath. After initial evaluation, the patient was admitted to the hospital with chest pain, possible acute coronary syndrome. First troponin in emergency room was noted to be elevated - 0.073. EKG revealed no acute ischemic changes. Patient was admitted to rule out acute coronary syndrome. BRIEF HOSPITAL STAY: The patient was admitted to telemetry floor. Serial troponin were ordered. Cardiology consult was requested. Second troponin with trend up to 0.137, and the next troponin on 04/15/2017 in the morning - 0.032. Cardiology consult was requested. Lipid panel was stable. Echocardiogram revealed ejection fraction of 65%, no evidence of left ventricular hypertrophy, and normal left ventricular chamber size, systolic function, and wall motion. Right ventricular systolic pressure of 11. Repeated EKG revealed no acute ischemic changes. The patient was on Lovenox as well as on antiplatelets, beta-marilu coverage, and statin. Clinical Informatics Physician closely followed. The patient was nonsmoker. Toxicology screen was negative. GI prophylaxis provided. Pain management provided. LFTs were trending down, initially elevated. Chest x-ray revealed no acute findings. At around 1600 hours on 04/15/2017, the patient decided to sign against medical advice. The risks and consequences of signing against medical advice were discussed with the patient. He verbalized understanding of explained risks and consequences. The patient stated he felt better. He had no chest pain or shortness of breath at that time. Troponin that morning was negative. The patient signed against AMA form and left. FINAL DIAGNOSES: 1. Chest pain 2. Possible [id number]-[id number] myocardial infarction. 3. Morbid obesity. 4. Elevated liver function test. Tristian Naidu M.D. Jodie Noble ([facility]) N.PElfego DR: Bri JOB#: [id number] CC: WALTER
--- NOTE | 2017-04-24 08:39 | Cardiology Report ---
APPROVED REPORT EKG Measurement Heart [id number] Normal sinus rhythm Normal ECG
== END 2017-04-15 16:00 | disposition left against medical advice (07) | DRG 190 ==
LOC: EMR 04-13 00:30 → 2E 04-13 02:25 → EDBEDREQ 04-13 02:50
DX: I21.4 Non-ST elevation (NSTEMI) myocardial infarction (principal); Z68.41 Body mass index [BMI] 40.0-44.9, adult; I10 Essential (primary) hypertension; E66.01 Morbid (severe) obesity due to excess calories; R74.8 Abnormal levels of other serum enzymes
CPT/HCPCS: 36415; 71010; 80053; 80061; 80300; 82550; 82553; 83690; 84484; 85025; 93005; 93306; 99285; J8499